=== PATIENT | female | born 1960 | race Asian ===

== ENCOUNTER 2021-06-07 18:06 | Emergency (ER) | payer OTHER ==
[~2021-06-07] VITALS: Ht 154.9 cm; Wt 79.8 kg
[2021-06-07] MEDS ORDERED: ACETAMINOPHEN 325 MG TAB ONE (20:07)
[2021-06-07] MEDS ORDERED: NAPROSYN500 MG PO (20:26)
[2021-06-07] MEDS ORDERED: CYCLOBENZAPRINE10 MG PO (20:28)
[2021-06-07 20:42] VITALS: BP 138/82
[2021-06-07] MEDS ORDERED: ACETAMINOPHEN 325 MG TAB PO ONE (21:10)
== END 2021-06-07 20:42 | disposition home or self-care (01) ==
LOC: FSED 18:10
DX: S13.4XXA Sprain of ligaments of cervical spine, initial encounter (principal); V43.62XA Car passenger injured in collision with other type car in traffic accident, initial encounter; Y92.488 Other paved roadways as the place of occurrence of the external cause
CPT/HCPCS: 99282